=== PATIENT | female | born 1980 | race Caucasian/White ===

== ENCOUNTER 2017-08-21 09:51 | Emergency (ER) | payer SELFPAY ==
[2017-08-21 10:10] VITALS: BP 145/89; BMI 50.8
--- NOTE | 2017-08-21 10:57 | DR.EXTPAIN ---
HPI - Time seen Time seen: 10:15 - PCP Primary Care Physician: NFD - Complaint/Symptoms Chief Complaint:: PT C/O SEVERE PAIN TO HER RIGHT LEG AND SPASMS PT C/O NOT BEING ABLE TO SLEEP AT NIGHT AND SHE DENIES ANY INJURIED AND HE PAIN HAS BEEN GOING ON FOR 5 WEEKS.. Self Treatment fo Chief Complaint: BENADRYL, NAPROXEN, HEATING PAD, - Source History Provided: Patient - Mode of arrival Mode of Arrival: Ambulatory - Timing Onset of Chief Complaint: 07/25/17 PMH - PMH Past Medical History: Yes Past Medical History: Asthma, Migraines Past Medical History Comment: ONE MINI STROKE.. NEUROPATHY Past Surgical History: Yes Past Surgical History Comment: CYST FROM HEAD, - Family History History of Family Medical Conditions: Yes Family Medical History: Diabetes Mellitus Family Medical History Comment: DEMENTIA, ALZ, CHF - Social History Does patient currently use any type of tobacco product: Yes Have you used tobacco products in the last 12 months: Yes Type of Tobacco Use: Cigarettes How many years tobacco product used: 16 Does any household member use tobacco: No Alcohol Use: None Do you use any recreational Drugs:: No Lives With: Spouse Lives Where: Home - infectious screening In the last 2 months have you had wt loss of >10#?: NO Have you had fever, night sweats or hemotysis?: No Have you traveled outside the country in the last 6 months?: No Isolation: Droplet ROS - Review of Systems Eyes: No Symptoms Reported ENTM: No Symptoms Reported Respiratoy: No Symptoms Reported Cardiovascular: No Symptoms Reported Gastrointestinal/Abdominal: No Symptoms Reported Genitourinary: No Symptoms Reported Neurological: No Symptoms Reported Musculoskeletal: Muscle Pain (low lumbar, right leg pain) Integumentary: No Symptoms Reported Hematologic/Lymphatic: No Symptoms Reported Endocrine: No Symptoms Reported Psychiatric: No Symptoms Reported All Other Systems: Reviewed and Negative PE - Vital Signs Vitals: Temperature 98.3 F Pulse Rate 94 Respiratory Rate 20 Blood Pressure 145/89 O2 Sat by Pulse Oximetry 96 - General Limitations: No Limitations General Appearance: Alert, In No Apparent Distress - Head Head Exam: Normal Inspection, Atraumatic - Eyes Eye exam: Normal Appearance, PERRL, EOMI - ENT ENT Exam: Normal Exam - Neck Neck Exam: Normal Inspection, Full ROM - Chest Chest Inspection: Normal Inspection - Respiratory Respiratory Exam: Normal Lung Sounds Bilat Respiratory Exam: Bilateral Clear to Auscultation - Cardiovascular Cardiovascular Exam: Regular Rate, Normal Rhythm - Abdominal Exam Abdominal Exam: Normal Inspection, Normal Bowel Sounds Abdominal Tenderness: negative: RUQ, RLQ, LUQ, LLQ, Epigastrium, Suprapubic, Diffuse, Mild, Moderate, Severe, Other - Extremities Extremities Exam: Normal Inspection, Full ROM - Upper Extremities Shoulder Exam: Normal Inspection, Full ROM Arm Exam: Normal Inspection Elbow Exam: Normal Inspection Forearm Exam: Normal Inspection Hand Exam: Normal Inspection Neuromotor Exam: Normal Exam Neurosensory Exam: Normal Exam Hand Tendon Exam: Flexor Digitorium Profundus (Location) Upper Ext. Vascular Exam: Capillary Refill - Lower Extremities Hip/Pelvis Exam: Tenderness (low lumbar, ) Upper Leg Exam: Normal Inspection Knee Exam: Normal Inspection Lower Leg Exam: Normal Inspection Ankle Exam: Normal Inspection Foot/Toe Exam: Normal Inspection, Full ROM Neurovascular/Tendon Exam: Normal Capillary Refill Gait Exam: Not Tested/Not Observed - Back Back Exam: Tenderness (low lumbar) - Neurological Neurological Exam: Alert, Oriented X3, CN II-XII Intact - Psychiatric Psychiatric Exam: Normal Affect, Normal Mood - Skin Skin Exam: Warm ROR - XRAY XRAY Interpreted by: Radiologist (There is normal alignment without fracture or copression or significant disc space narrowing. The spinous processes and transverse processes are intact. The sacroiliac joints are unremarkable. There are minimal lateral degenerative osteophytes and anterior osteohyters at L2-3 and L3-4. The facet joints are unremarkalbe. At L4-5 there is mild ventral bulging of the disc. There is mild ventral bulging of the disc at L5- S1. Impression: Mild ventral bulgint of the disc. There is mild ventral bulging of the disc at L5-S1.) - Diagnosis Discharge Problem: Lumbosacral radiculopathy due to degenerative joint disease of spine, Disc bulgine of L5-S1 - Discharge Plan Condition: Stable - Follow ups/Referrals Follow ups/Referrals: NFD,None [Primary Care Provider] - 3 days - Instructions
[2017-08-21] MEDS ORDERED: TORADOL 60 MG VIAL IM ONE (11:00)
[2017-08-21] MEDS ORDERED: TORADOL 60 MG VIAL ONE (11:01)
--- NOTE | 2017-08-21 12:02 | CT ---
History: Chronic low back pain radiating to the right leg Study: CT of the lumbar spine without contrast. Sagittal and coronal reformations were provided. Comparison: None Findings: There is normal alignment without fracture or compression or significant disc space narrowi ng. The spinous processes and transverse processes are intact. The sacroiliac joints are unremarkable . There are minimal lateral degenerative osteophytes and anterior osteophytes at L2-3 and L3-4. The f acet joints are unremarkable. At L4-5 there is mild ventral bulging of the disc. There is mild ventral bulging of the disc at L5-S1 . Impression: Mild degenerative disc disease and disc bulging as described Reported By:
== END 2017-08-21 12:30 | disposition home or self-care (01) ==
LOC: ER 10:34
DX: M51.36 Other intervertebral disc degeneration, lumbar region (principal); M51.27 Other intervertebral disc displacement, lumbosacral region
CPT/HCPCS: 72131; 96372; 99283; J1885